=== PATIENT | female | born 2000 | race African-American/Black ===

== ENCOUNTER 2020-11-14 01:10 | Emergency (ER) | payer OTHER ==
[~2020-11-14 01:10] MED LIST: MACROBID100 MG PO; MIRALAX17 GM PO; PREDNISONE 20MG20 MG PO; PROAIR HFA8.5 GM INH; [UNRECOGNIZED DRUG - OTHER] PO
[2020-11-14 01:49] LABS: BILIRUBIN NEGATIVE (NEGATIVE); BLOOD 3+ Ery/uL (NEGATIVE); CLARITY TURBID (CLEAR); COLOR RED (YELLOW); GLUCOSE (U) NORMAL (NORMAL); LEUKOCYTES TRACE Leu/uL (NEGATIVE); NITRITE POSITIVE (NEGATIVE); PROTEIN 3+ mg/dL (NEGATIVE); SPECIFIC GRAVITY >=1.030 (1.001-1.030); UROBILINOGEN 0.2 mg/dL (0.2-1.0); pH 6.5 (5.0-9.0)
[2020-11-14 01:51] LABS: URINARY RBC TNTC
[2020-11-14] MEDS ORDERED: CEPHALEXIN500 M1 PO (02:35)
[2020-11-14] MEDS ORDERED: PYRIDIUM200 MG PO (02:35)
[2020-12-22] MEDS ORDERED: VITAMIN D350 MC4 PO (14:23)
[2020-12-22] MEDS ORDERED: AMLODIPINE BESY10 MG PO (14:23)
[2020-12-28] MEDS ORDERED: MOTRIN600 MG PO (12:06)
[2020-12-28] MEDS ORDERED: COLACE100 MG PO (12:06)
[2020-12-28] MEDS ORDERED: PERCOCET 5-3251 EACH PO (12:06)
== END 2020-11-14 02:55 | disposition home or self-care (01) ==
LOC: FER 01:10
PROVIDERS: Student in an Organized Health Care Education/Training Program
DX: N30.01 Acute cystitis with hematuria (principal); I10 Essential (primary) hypertension
CPT/HCPCS: 81001; 99283; J1885

== ENCOUNTER 2020-11-23 00:53 | Emergency (ER) | payer OTHER ==
[~2020-11-23 00:53] MED LIST changes: +CEPHALEXIN500 M1 PO; +PYRIDIUM200 MG PO
[2020-11-23 01:22] LABS: BASOPHIL 0.5 % (0-2); BILIRUBIN NEGATIVE (NEGATIVE); BLOOD 3+ Ery/uL (NEGATIVE); CLARITY HAZY (CLEAR); COLOR YELLOW (YELLOW); EOSINOPHIL 0.8 % (0-5); GLUCOSE (U) NORMAL (NORMAL); HCT 38.9 % (37.0-47.0); HGB 12.7 g/dl (12.5-16.0); LEUKOCYTES 1+ Leu/uL (NEGATIVE); LYMPHOCYTE 20.1 % (15-48); MCH 30.8 pg (25.0-31.0); MCHC 32.6 g/dL (32.0-36.0); MCV 94.4 fL (78.0-100.0); MONOCYTE 10.6 % (0-12); MPV 10.7 fL (6.0-9.5); NEUTROPHIL 67.6 % (41-80); NITRITE POSITIVE (NEGATIVE); NRBC 0; PLT 343 K/uL (150-400); PROTEIN 2+ mg/dL (NEGATIVE); RBC 4.12 M/uL (4.20-5.40); RDW 11.2 % (11.5-14.0); SPECIFIC GRAVITY 1.025 (1.001-1.030); UROBILINOGEN 0.2 mg/dL (0.2-1.0); WBC 13.7 K/uL (4.0-10.5); pH 7.5 (5.0-9.0)
[2020-11-23 01:24] LABS: BACTERIA 2+; URINARY RBC TNTC; URINARY WBC TNTC
[2020-11-23 01:38] LABS: ALBUMIN 3.7 g/dL (3.4-5.0); BILIRUBIN - TOTAL 0.3 mg/dL (0.2-1.0); BUN/CREAT RATIO (CALC) 23.8 RATIO; CREATININE 0.63 mg/dL (0.51-0.95); POTASSIUM 3.8 mmol/L (3.5-5.1); TOTAL PROTEIN 7.7 g/dL (6.4-8.2)
[2020-11-23] MEDS ORDERED: LEVAQUIN500 MG PO (03:40)
[2020-12-22] MEDS ORDERED: VITAMIN D350 MC4 PO (14:23)
[2020-12-22] MEDS ORDERED: AMLODIPINE BESY10 MG PO (14:23)
[2020-12-28] MEDS ORDERED: PERCOCET 5-3251 EACH PO (12:06)
[2020-12-28] MEDS ORDERED: COLACE100 MG PO (12:06)
[2020-12-28] MEDS ORDERED: MOTRIN600 MG PO (12:06)
== END 2020-11-23 04:00 | disposition home or self-care (01) ==
LOC: FER 00:53
PROVIDERS: Emergency Medicine
DX: N10 Acute pyelonephritis (principal); R10.11 Right upper quadrant pain
CPT/HCPCS: 36415; 80053; 81001; 83690; 85025; 87076; 87088; 87186; J1885; J1956

== ENCOUNTER → 2020-12-28 | Day surgery (SDC) | payer OTHER ==
[~2020-12-28] VITALS: Ht 160 cm; Wt 83.5 kg
[~2020-12-28] MED LIST changes: +AMLODIPINE BESY10 MG PO; +COLACE100 MG PO; +IBUPROFEN800 MG PO; +LEVAQUIN500 MG PO; +MOTRIN600 MG PO; +ONDANSETRON ODT4 MG SL; +PERCOCET 5-3251 EACH PO; +VITAMIN D350 MC4 PO
[2020-12-28 09:34] LABS: HCG (URINE) SCREEN NEGATIVE (NEGATIVE)
== END | disposition home or self-care (01) ==
LOC: FAS 09:06
PROVIDERS: Obstetrics & Gynecology
DX: D27.0 Benign neoplasm of right ovary (principal); I10 Essential (primary) hypertension; R73.03 Prediabetes; Z98.890 Other specified postprocedural states; Z82.49 Family history of ischemic heart disease and other diseases of the circulatory system; Z80.3 Family history of malignant neoplasm of breast; Z80.0 Family history of malignant neoplasm of digestive organs; Z20.822 Contact with and (suspected) exposure to COVID-19
CPT/HCPCS: 84703; 86850; 86900; 86901; J1100; J1885; J2001; J2250; J2405; J2704; J3010; J7120

== ENCOUNTER 2021-03-31 21:15 | Emergency (ER) | payer OTHER ==
[~2021-03-31 21:15] MED LIST changes: -IBUPROFEN800 MG PO; -ONDANSETRON ODT4 MG SL
[2021-03-31 22:36] LABS: BASOPHIL 0.4 % (0-2); EOSINOPHIL 1.2 % (0-5); HCT 41.9 % (37.0-47.0); HGB 13.6 g/dl (12.5-16.0); LYMPHOCYTE 21.2 % (15-48); MCH 30.6 pg (25.0-31.0); MCHC 32.5 g/dL (32.0-36.0); MCV 94.4 fL (78.0-100.0); MONOCYTE 17.7 % (0-12); MPV 11.2 fL (6.0-9.5); NEUTROPHIL 58.9 % (41-80); NRBC 0; PLT 251 K/uL (150-400); RBC 4.44 M/uL (4.20-5.40); RDW 11.6 % (11.5-14.0); WBC 5.1 K/uL (4.0-10.5)
[2021-03-31 22:46] LABS: MONOSPOT (MONONUCLEOSIS) NEGATIVE (NEGATIVE)
[2021-03-31 22:50] LABS: ALBUMIN 3.5 g/dL (3.4-5.0); BILIRUBIN - TOTAL 0.2 mg/dL (0.2-1.0); BUN/CREAT RATIO (CALC) 20.3 RATIO; CREATININE 0.59 mg/dL (0.51-0.95); GLOBULIN (CALCULATION) 3.7 g/dL; POTASSIUM 3.8 mmol/L (3.5-5.1); TOTAL PROTEIN 7.2 g/dL (6.4-8.2)
[2021-03-31 23:31] LABS: BILIRUBIN NEGATIVE (NEGATIVE); BLOOD TRACE-INTACT Ery/uL (NEGATIVE); COLOR YELLOW (YELLOW); GLUCOSE (U) 1+ mg/dL (NORMAL); LEUKOCYTES 1+ Leu/uL (NEGATIVE); NITRITE NEGATIVE (NEGATIVE); PROTEIN NEGATIVE (NEGATIVE); SPECIFIC GRAVITY 1.025 (1.001-1.030); UROBILINOGEN 0.2 mg/dL (0.2-1.0); pH 6.5 (5.0-9.0)
[2021-03-31 23:39] LABS: CLARITY SLIGHTLY HAZY (CLEAR)
[2021-03-31 23:41] LABS: BACTERIA 1+; MUCOUS TRACE; YEAST PRESENT
[2021-04-01] LABS: INFLUENZA A NAA NEGATIVE (NEGATIVE)
[2021-04-01 00:02] LABS: CORONAVIRUS 2019 SARS-COV-2 POSITIVE (NEGATIVE)
[2021-04-01] MEDS ORDERED: ONDANSETRON ODT4 MG SL (00:54)
[2021-04-01] MEDS ORDERED: IBUPROFEN800 MG PO (00:54)
== END 2021-04-01 04:04 | disposition home or self-care (01) ==
LOC: FER 21:15
PROVIDERS: Emergency Medicine Emergency Medical Services
DX: U07.1 COVID-19 (principal); I10 Essential (primary) hypertension
CPT/HCPCS: 36415; 80053; 81001; 85025; 86308; 87880; J1885; M0243; Q0244; U0002

== ENCOUNTER 2021-09-14 18:28 | Emergency (ER) | payer OTHER ==
[~2021-09-14 18:28] MED LIST changes: +IBUPROFEN800 MG PO; +ONDANSETRON ODT4 MG SL
[2021-09-14 19:42] LABS: BILIRUBIN NEGATIVE (NEGATIVE); BLOOD NEGATIVE Ery/uL (NEGATIVE); CLARITY CLEAR (CLEAR); COLOR YELLOW (YELLOW); GLUCOSE (U) NORMAL (NORMAL); LEUKOCYTES NEGATIVE Leu/uL (NEGATIVE); NITRITE NEGATIVE (NEGATIVE); PROTEIN NEGATIVE (NEGATIVE); SPECIFIC GRAVITY 1.025 (1.001-1.030); UROBILINOGEN 0.2 mg/dL (0.2-1.0); pH 6.5 (5.0-9.0)
[2021-09-14 19:51] LABS: BASOPHIL 0.5 % (0-2); EOSINOPHIL 0.7 % (0-5); HCT 45.3 % (37.0-47.0); HGB 14.5 g/dl (12.5-16.0); MCH 30.3 pg (25.0-31.0); MCV 94.8 fL (78.0-100.0); MONOCYTE 9.5 % (0-12); MPV 10.3 fL (6.0-9.5); NEUTROPHIL 67.8 % (41-80); NRBC 0; PLT 350 K/uL (150-400); RBC 4.78 M/uL (4.20-5.40); RDW 11.7 % (11.5-14.0); WBC 11.1 K/uL (4.0-10.5)
[2021-09-14 20:07] LABS: BUN/CREAT RATIO (CALC) 14.1 RATIO; CREATININE 0.64 mg/dL (0.51-0.95); POTASSIUM 3.8 mmol/L (3.5-5.1)
[2021-09-14 20:27] LABS: CORONAVIRUS 2019 SARS-COV-2 NEGATIVE (NEGATIVE); INFLUENZA A NAA NEGATIVE (NEGATIVE)
[2021-09-14] MEDS ORDERED: PRENATAL FORMU1 EACH PO (21:49)
== END 2021-09-14 22:35 | disposition home or self-care (01) ==
LOC: FER 18:28
PROVIDERS: Nurse Practitioner Family
DX: O99.891 Other specified diseases and conditions complicating pregnancy (principal); O10.911 Unspecified pre-existing hypertension complicating pregnancy, first trimester; M54.50 Low back pain, unspecified; R11.0 Nausea; Z3A.01 Less than 8 weeks gestation of pregnancy; Z20.822 Contact with and (suspected) exposure to COVID-19
CPT/HCPCS: 36415; 80048; 81003; 84702; 85025; 99284; U0002